=== PATIENT | female | born 1980 | race Caucasian/White ===

== ENCOUNTER 2023-12-03 12:40 | Emergency (ER) | payer OTHER ==
[~2023-12-03] VITALS: Ht 165.1 cm; Wt 65.8 kg
[2023-12-03 12:41] VITALS: BP 147/74; PULSE 97; RESP 18; TEMP 98.9; O2SAT 99
[2023-12-03] MEDS: KETOROLAC 60 MG/2 ML VIAL IM ONE (13:56)
[2023-12-03] MEDS ORDERED: PRED20TA5 PO (14:01)
[2023-12-03] MEDS ORDERED: OMEP40EC24 PO (14:01)
== END 2023-12-03 14:17 | disposition home or self-care (01) ==
LOC: MED 12:40
DX: R07.89 Other chest pain (principal); J45.909 Unspecified asthma, uncomplicated
CPT/HCPCS: 71045; 81002; 81025; 96372; 99283; J1885